=== PATIENT | female | born 1990 | race African-American/Black ===

== ENCOUNTER → 2024-08-09 | Outpatient (REF) | payer OTHER ==
[2024-08-09 20:59] LABS: Trichomonas vaginalis (AMP) NOT DETECTED (NEGATIVE)
[2024-08-09 21:23] LABS: GC DNA AMPLIFICATION NEGATIVE (NEGATIVE)
== END ==
LOC: M LAB REF 17:49
PROVIDERS: ATTEND Student in an Organized Health Care Education/Training Program
DX: R30.0 Dysuria (principal)

== ENCOUNTER 2024-11-05 14:32 | Emergency (ER) | payer OTHER ==
[~2024-11-05] VITALS: Ht 154.9 cm; Wt 98.2 kg
[2024-11-05] MEDS ORDERED: ACET-907 PO (16:50)
[2024-11-05] MEDS ORDERED: KETO10TAB PO (17:12)
[2024-11-05] MEDS ORDERED: METH-1165 PO (17:12)
[2024-11-05] MEDS: methocarbamoL 750 MG TAB PO ONE (17:25)
[2024-11-05] MEDS: KETOROLAC TROMETHAMINE 10 MG TAB PO ONE (17:25)
[2024-11-05 17:27] VITALS: BP 150/95; TEMP 96.9; O2SAT 100
== END 2024-11-05 17:30 | disposition home or self-care (01) ==
LOC: M ED 14:32
DX: M54.50 Low back pain, unspecified (principal); Z79.899 Other long term (current) drug therapy

== ENCOUNTER 2025-08-02 15:30 | Emergency (ER) | payer OTHER ==
[~2025-08-02] VITALS: Ht 154.9 cm; Wt 100.8 kg
[~2025-08-02 15:30] MED LIST: ACET-907 PO; KETO10TAB PO; METH-1165 PO
[2025-08-02] MEDS ORDERED: ACET-840 (15:42)
[2025-08-02 19:37] VITALS: BP 145/69; TEMP 98.3; O2SAT 99
== END 2025-08-02 20:53 | disposition left against medical advice (07) ==
LOC: M ED 15:30
DX: Z53.21 Procedure and treatment not carried out due to patient leaving prior to being seen by health care provider (principal)